=== PATIENT | female | born 1990 ===

== ENCOUNTER 2018-12-25 07:15 | Day surgery (SDC) | payer OTHER ==
[2018-12-23 12:13] LABS: BASOPHIL % 1.3 % (0-2); PLATELET COUNT 275 x10^3mcL (130-400); RED CELL DISTRIBUTION WIDTH 12.3 % (11.5-14.5)
[2018-12-23 12:26] LABS: CALCIUM 8.7 mg/dL (8.5-10.1); CARBON DIOXIDE 29.2 mmol/L (21-32); CHLORIDE SERUM 104 mmol/L (98-107); CREATININE SERUM 0.7 mg/dL (0.6-1.0); GFR1 > 60 mL/min; GLUCOSE SERUM 98 mg/dL (74-106); POTASSIUM SERUM 4.2 mmol/L (3.5-5.1); SODIUM SERUM 140 mmol/L (136-145)
[~2018-12-25] VITALS: Ht 149.9 cm; Wt 42.2 kg
[2018-12-25 08:29] VITALS: BP 108/69
[2018-12-25 15:48] VITALS: BP 99/63
== END 2018-12-25 14:00 | disposition home or self-care (01) ==
LOC: DS 07:15 → OR 11:30 → DS 14:00
PROVIDERS: Obstetrics & Gynecology
PROC: 0UBC7ZZ Excision of Cervix, Via Natural or Artificial Opening (ICD-10-PCS; principal; 2018-12-25 10:30)
DX: D06.0 Carcinoma in situ of endocervix (principal)
CPT/HCPCS: J0690; J2250; J2704; J3010; J7120